=== PATIENT | female | born 1960 | race African-American/Black ===

== ENCOUNTER 2018-01-08 12:24 | Emergency (ER) | payer BC, OTHER ==
[~2018-01-08] VITALS: Ht 157.5 cm; Wt 52.2 kg
[~2018-01-08 12:24] MED LIST: ASPI-612 PO; CIPR250T30 PO; DILT120C71 PO; DILT120C80 PO; HYDR-971 PO; LISI-334 PO; LOPE2TAB27 PO; MECL12.52 PO; METH-37 PO; PROC5TAB34 PO
[2018-01-08] MEDS ORDERED: ONDANSETRON PF 4 MG/2 ML VIAL. IV ONE (13:15)
[2018-01-08] MEDS ORDERED: MECLIZINE HCL 12.5 MG TABLET. PO ONE (13:15)
[2018-01-08] MEDS ORDERED: IV NORMAL SALINE 500ML BAG 500 ML IV ONE (13:15)
--- NOTE | 2018-01-08 13:17 | PHYS DOC ---
Past Medical History Past Medical History: Hypertension, Other Additional Past Medical Histor: chronic back pain Past Surgical History: No Surgical History Alcohol Use: Occasionally Drug Use: None Adult General Chief Complaint Chief Complaint: DIZZY/LIGHT HEADED HPI HPI Patient is a 57 year old female who presents with pinning of dizziness. Patient complaining of intermittent episodes of dizziness for the last 2 or 3 days that usually happen change of position and standing up and last for about 20 minutes. Patient complaining of dizziness and mild headache without other lesion, focal neuro deficit, chest pain, palpitation, fever and chills, change of hearing, tinnitus, nasal congestion. Patient complaining of nausea and 4 episodes of vomiting yesterday and denies abdominal pain, urinary symptoms, diarrhea and constipation and history of dizziness previously. She rated her headache 10/30. Review of Systems Review of Systems Constitutional: Denies fever or chills [] Eyes: Denies change in visual acuity, redness, or eye pain [] HENT: Denies nasal congestion or sore throat [] Respiratory: Denies cough or shortness of breath [] Cardiovascular: No additional information not addressed in HPI [] GI: Denies abdominal pain, nausea, vomiting, bloody stools or diarrhea [] : Denies dysuria or hematuria [] Musculoskeletal: Denies back pain or joint pain [] Integument: Denies rash or skin lesions [] Neurologic: Reports dizziness and headache, denies focal weakness or sensory changes [] Endocrine: Denies polyuria or polydipsia [] All other systems were reviewed and found to be within normal limits, except as documented in this note. Current Medications Current Medications Current Medications Medications (Trade) Dose Ordered Sig/[facility] Start Time Stop Time Status Last Admin Dose Admin Ketorolac Tromethamine (Toradol 30mg Vial) 30 mg 1X ONCE 01/08/18 13:30 01/08/18 13:31 DC 01/08/18 13:39 30 MG Meclizine HCl (Antivert) 25 mg 1X ONCE 01/08/18 13:15 01/08/18 13:16 DC 01/08/18 13:39 25 MG Ondansetron HCl (Zofran) 4 mg 1X ONCE 01/08/18 13:15 01/08/18 13:16 DC 01/08/18 13:39 4 MG Sodium Chloride 500 ml @ 500 mls/hr 1X ONCE 01/08/18 13:15 01/08/18 14:14 DC 01/08/18 13:39 500 MLS/HR Allergies Allergies Allergies Coded Allergies Type Severity Reaction Last Updated Verified No Known Drug Allergies 08/02/15 No Physical Exam Physical Exam Constitutional: Well developed, well nourished, mild distress, non-toxic appearance. [] HENT: Normocephalic, atraumatic, bilateral external ears normal, oropharynx moist, no oral exudates, nose normal. [] Eyes: PERRLA, EOMI, conjunctiva normal, no discharge. [] Neck: Normal range of motion, no tenderness, supple, no stridor. [] Cardiovascular:Heart rate regular rhythm, no murmur [] Lungs & Thorax: Bilateral breath sounds clear to auscultation [] Abdomen: Bowel sounds normal, soft, no tenderness, no masses, no pulsatile masses. [] Skin: Warm, dry, no erythema, no rash. [] Back: No tenderness, no CVA tenderness. [] Extremities: No tenderness, no cyanosis, no clubbing, ROM intact, no edema. [] Neurologic: Alert and oriented X 3, normal motor function, normal sensory function, no focal deficits noted. [] Psychologic: Affect normal, judgement normal, mood normal. [] Current Patient Data Vital Signs Vital Signs Date Time Temp Pulse Resp B/P (MAP) Pulse Ox O2 Delivery O2 Flow Rate FiO2 01/08/18 12:35 98.4 88 16 148/97 (114) 98 Room Air 98.4 Lab Values Laboratory Tests Test 01/08/18 12:39 01/08/18 12:47 Glucose (Fingerstick) 96 mg/dL (70-99) White Blood Count 6.8 x10^3/uL (4.0-11.0) Red Blood Count 5.12 x10^6/uL (3.50-5.40) Hemoglobin 14.4 g/dL (12.0-15.5) Hematocrit 42.6 % (36.0-47.0) Mean Corpuscular Volume 83 fL (79-100) Mean Corpuscular Hemoglobin 28 pg (25-35) Mean Corpuscular Hemoglobin Concent 34 g/dL (31-37) Red Cell Distribution Width 15.0 % (11.5-14.5) H Platelet Count 285 x10^3/uL (140-400) Neutrophils (%) (Auto) 56 % (31-73) Lymphocytes (%) (Auto) 24 % (24-48) Monocytes (%) (Auto) 8 % (0-9) Eosinophils (%) (Auto) 11 % (0-3) H Basophils (%) (Auto) 1 % (0-3) Neutrophils # (Auto) 3.8 x10^3uL (1.8-7.7) Lymphocytes # (Auto) 1.7 x10^3/uL (1.0-4.8) Monocytes # (Auto) 0.5 x10^3/uL (0.0-1.1) Eosinophils # (Auto) 0.7 x10^3/uL (0.0-0.7) Basophils # (Auto) 0.1 x10^3/uL (0.0-0.2) Sodium Level 139 mmol/L (136-145) Potassium Level 3.9 mmol/L (3.5-5.1) Chloride Level 102 mmol/L (98-107) Carbon Dioxide Level 24 mmol/L (21-32) Anion Gap 13 (6-14) Blood Urea Nitrogen 14 mg/dL (7-20) Creatinine 0.8 mg/dL (0.6-1.0) Estimated GFR (Cockcroft-Gault) 89.1 BUN/Creatinine Ratio 18 (6-20) Glucose Level 76 mg/dL (70-99) Calcium Level 9.6 mg/dL (8.5-10.1) Magnesium Level 1.9 mg/dL (1.8-2.4) Total Bilirubin 0.4 mg/dL (0.2-1.0) Aspartate Amino Transferase (AST) 25 U/L (15-37) Alanine Aminotransferase (ALT) 21 U/L (14-59) Alkaline Phosphatase 50 U/L (46-116) Creatine Kinase 92 U/L (26-192) Troponin I Quantitative < 0.017 ng/mL (0.000-0.055) VD-Omf-I-Type Natriuretic Peptide 102 pg/mL (0-124) Total Protein 7.7 g/dL (6.4-8.2) Albumin 3.8 g/dL (3.4-5.0) Albumin/Globulin Ratio 1.0 (1.0-1.7) Laboratory Tests 01/08/18 12:47 Laboratory Tests 01/08/18 12:47 EKG EKG [] Interpretation Time: EKG interpreted by me. EKG at 1490 showed normal sinus rhythm at rate of 87, left babb axis, no acute distress and T-wave abnormalities Radiology/Procedures Radiology/Procedures [facility] [address] [place] [address] IMAGING REPORT Signed PATIENT: LESLEY ALLISON ACCOUNT: [id number] : 1960 LOCATION: ER AGE: 57 SEX: F EXAM STATUS: REG ER ORD. PHYSICIAN: RAINA MORGAN MD REASON: dizziness PROCEDURE: CT HEAD WO CONTRAST PQRS Compliance Statement: One or more of the following individualized dose reduction techniques were utilized for this examination: 1. Automated exposure control 2. Adjustment of the mA and/or kV according to patient size 3. Use of iterative reconstruction technique CT HEAD WITHOUT CONTRAST History: DIZZINESS, LEFT SIDED NUMBNESS X 3 DAYS, Comparison: MR brain without contrast, February 24, 2017. Procedure: Axial images are obtained of the head from the skull base through the vertex without IV contrast. Findings: The ventricles and sulci are normal for the patient's age. No mass-effect, midline shift, hemorrhage, extra-axial fluid collection, or obvious acute infarction is identified. Basilar cisterns are patent. Small focus of hypoattenuation in the subcortical left frontal lobe is stable. Bone windows demonstrate no acute calvarial abnormality. Moderate left sphenoid and mild bilateral ethmoid sinus mucosal thickening. No air-fluid level. Mastoid air cells are well aerated. IMPRESSION: No acute intracranial abnormality. Electronically signed by: Adria Hines MD (01/08/2018 1:39 PM) [id number] DICTATED and SIGNED BY: ADRIA HINES MD DATE: 01/08/18 1333 Course & Med Decision Making Course & Med Decision Making Pertinent Labs and Imaging studies reviewed. (See chart for details) Evaluation of patient in ER showed 57-year-old male patient with complaining of episodes of positional dizziness for the last 3 days. Patient denied nausea and vomiting arrival to ER but later on complaining of 4 episodes of vomiting yesterday. Patient denies history of dizziness previously but according to EMR she other emergency room visits for dizziness. Anicteric comfortable in ER and after treatment with IV fluid and Zofran and meclizine states her problems. Patient asking for 3 days off of work. I was concern for malingering related to her job. Dragon Disclaimer Dragon Disclaimer This electronic medical record was generated, in whole or in part, using a voice recognition dictation system. Departure Departure Impression: Primary Impression: Benign positional vertigo Additional Impressions: Nausea and vomiting Hypertension Disposition: HOME, SELF-CARE (at 1430) Condition: IMPROVED Referrals: MISHA CAMACHO MD (PCP) Patient Instructions: Benign Positional Vertigo, Nausea and Vomiting Additional Instructions: Drink plenty of liquids Follow-up with your primary care physician in 3-5 days Return to ER if not getting better Take only liquid diet today Scripts Ondansetron (ZOFRAN ODT) 4 Mg Tab.rapdis 1 TAB SL Q8HRS, #15 TAB Prov: RAINA MORGAN MD 01/08/18 Meclizine Hcl (MECLIZINE HCL) 25 Mg Tablet 1 TAB PO PRN TID, #30 TAB Prov: RAINA MORGAN MD 01/08/18 Problem Qualifiers RAINA MORGAN MD Jan 08, 2018 13:17
[2018-01-08 13:27] LABS: BASO # 0.1 x10^3/uL (0.0-0.2); BASO % 1 % (0-3); EOS # 0.7 x10^3/uL (0.0-0.7); EOS % 11 % (0-3); HEMATOCRIT 42.6 % (36.0-47.0); HEMOGLOBIN 14.4 g/dL (12.0-15.5); LYMPH # 1.7 x10^3/uL (1.0-4.8); LYMPH % 24 % (24-48); MEAN CORPUSCULAR HEMOGLOBIN 28 pg (25-35); MEAN CORPUSCULAR HGB CONC 34 g/dL (31-37); MEAN CORPUSCULAR VOLUME 83 fL (79-100); MONO # 0.5 x10^3/uL (0.0-1.1); MONO % 8 % (0-9); NEUT # 3.8 x10^3uL (1.8-7.7); NEUT % 56 % (31-73); PLATELET COUNT 285 x10^3/uL (140-400); RED BLOOD COUNT 5.12 x10^6/uL (3.50-5.40); WHITE BLOOD COUNT 6.8 x10^3/uL (4.0-11.0)
[2018-01-08] MEDS ORDERED: KETOROLAC 30 MG/ML VIAL. IV ONE (13:30)
--- NOTE | 2018-01-08 13:42 | RAD ---
PQRS Compliance Statement: One or more of the following individualized dose reduction techniques were utilized for this examination: 1. Automated exposure control 2. Adjustment of the mA and/or kV according to patient size 3. Use of iterative reconstruction technique CT HEAD WITHOUT CONTRAST History: DIZZINESS, LEFT SIDED NUMBNESS X 3 DAYS, Comparison: MR brain without contrast, February 24, 2017. Procedure: Axial images are obtained of the head from the skull base through the vertex without IV contrast. Findings: The ventricles and sulci are normal for the patient's age. No mass-effect, midline shift, hemorrhage, extra-axial fluid collection, or obvious acute infarction is identified. Basilar cisterns are patent. Small focus of hypoattenuation in the subcortical left frontal lobe is stable. Bone windows demonstrate no acute calvarial abnormality. Moderate left sphenoid and mild bilateral ethmoid sinus mucosal thickening. No air-fluid level. Mastoid air cells are well aerated. IMPRESSION: No acute intracranial abnormality. Electronically signed by: Adria Hines MD (01/08/2018 1:39 PM) [id number]
[2018-01-08 13:43] LABS: CALCIUM 9.6 mg/dL (8.5-10.1); CREATININE 0.8 mg/dL (0.6-1.0); GFR 89.1
[2018-01-08 13:49] LABS: ALBUMIN 3.8 g/dL (3.4-5.0); MAGNESIUM 1.9 mg/dL (1.8-2.4); TOTAL BILIRUBIN 0.4 mg/dL (0.2-1.0); TOTAL PROTEIN 7.7 g/dL (6.4-8.2)
[2018-01-08 13:50] LABS: POTASSIUM 3.9 mmol/L (3.5-5.1)
--- NOTE | 2018-01-08 14:09 | RAD ---
EXAM: Chest, single view. HISTORY: Hypertension. Lightheadedness. COMPARISON: None. FINDINGS: A frontal view of the chest is obtained. There is no infiltrate, pleural effusion or pneumothorax. There is a prominent cardiac silhouette, a component of which is likely due to portable technique. IMPRESSION: No acute pulmonary finding. Electronically signed by: Brenda Ram MD (01/08/2018 2:05 PM) [facility]
[2018-01-08 14:39] VITALS: BP 143/81
[2018-01-08] MEDS ORDERED: ONDA4TAB10 SL (14:41)
[2018-01-08] MEDS ORDERED: MECL25TA3 PO (14:41)
--- NOTE | 2018-01-08 15:21 | EKG ---
[facility] [address] [place] [address] Test Date: 2018-01-08 Test Time: 12:39:25 Pat Name: LESLEY ALLISON Department: Room: Gender: F [employer]: : 1960 Requested By: RAINA MORGAN Order Number: [id number] Reading MD: Abe Mccabe MD Measurements Intervals [place] Rate: 87 P: 38 MD: 164 QRS: -29 QRSD: 78 T: 62 QT: 358 QTc: 431 Interpretive Statements SINUS RHYTHM Electronically Signed On 01-09-2018 8:08:51 CDT by Abe Mccabe MD
== END 2018-01-08 15:24 | disposition home or self-care (01) ==
LOC: ER 12:24
DX: H81.10 Benign paroxysmal vertigo, unspecified ear (principal); R11.2 Nausea with vomiting, unspecified; I10 Essential (primary) hypertension; R51 Headache; G89.29 Other chronic pain; M54.9 Dorsalgia, unspecified
CPT/HCPCS: 36415; 70450; 71045; 80053; 82550; 82962; 83735; 83880; 84484; 85025; 93005; 96361; 96374; 96375; 99285; J1885; J2405; J7040; J8597

== ENCOUNTER 2019-05-22 22:45 | Emergency (ER) | payer OTHER ==
[~2019-05-22] VITALS: Ht 157.5 cm; Wt 54.1 kg
[~2019-05-22 22:45] MED LIST changes: -DILT120C80 PO; +DILT120C99 PO; +HYDR-3164 PO; -HYDR-971 PO; +MECL-75 PO; -MECL12.52 PO; +MECL12.573 PO; +ONDA4TAB10 SL
[2019-05-23 00:06] LABS: BASO % 0 % (0-3); EOS % 0 % (0-3); HEMATOCRIT 40.1 % (36.0-47.0); HEMOGLOBIN 13.2 g/dL (12.0-15.5); LYMPH # 1.8 x10^3/uL (1.0-4.8); LYMPH % 16 % (24-48); MEAN CORPUSCULAR HEMOGLOBIN 27 pg (25-35); MEAN CORPUSCULAR HGB CONC 33 g/dL (31-37); MEAN CORPUSCULAR VOLUME 82 fL (79-100); MONO % 9 % (0-9); NEUT # 8.6 x10^3/uL (1.8-7.7); NEUT % 75 % (31-73); PLATELET COUNT 323 x10^3/uL (140-400); RED BLOOD COUNT 4.88 x10^6/uL (3.50-5.40); RED CELL DISTRIBUTION WIDTH 16.5 % (11.5-14.5); WHITE BLOOD COUNT 11.4 x10^3/uL (4.0-11.0)
[2019-05-23 00:10] LABS: BILIRUBIN,URINE NEGATIVE (NEG); CLARITY,URINE CLEAR; COLOR,URINE YELLOW; NITRITE,URINE NEGATIVE (NEG); PH,URINE 8.5; PROTEIN,URINE NEGATIVE (NEG-TRACE); UROBILINOGEN,URINE 0.2 mg/dL (0.2 mg/dL)
[2019-05-23 00:15] LABS: SQUAMOUS EPITHELIAL CELL,UR OCC /LPF
[2019-05-23 00:16] LABS: BACTERIA,URINE 0 /HPF (0-FEW); RBC,URINE RARE /HPF (0-2); WBC,URINE RARE /HPF (0-4)
[2019-05-23 00:19] LABS: CALCIUM 9.6 mg/dL (8.5-10.1); CREATININE 0.7 mg/dL (0.6-1.0); GFR 103.3; POTASSIUM 3.4 mmol/L (3.5-5.1)
--- NOTE | 2019-05-23 00:21 | PHYS DOC ---
Past Medical History Past Medical History: Hypertension, Other Additional Past Medical Histor: chronic back pain Past Surgical History: No Surgical History Alcohol Use: Occasionally Drug Use: None Adult General Chief Complaint Chief Complaint: ABDOMINAL PAIN HPI HPI 59-year-old female with underlying history of hypertension presents to the emergency Department complaints of abdominal pain described as a cramping sensation. She states it started this morning. She describes nausea as well as vomiting. Has had some intermittent diarrhea. Denies any fever. Pain is primarily center aspect of her abdomen no significant radiation. Denies any alcohol use. She denies any headache or visual change, chest pain or shortness of breath on examination. She felt abdominal pain and cramping worsening after taking NyQuil. Nothing makes her pain better, nothing makes her pain worse. Review of Systems Review of Systems Constitutional: Denies fever or chills [] Respiratory: Denies cough or shortness of breath [] Cardiovascular: No additional information not addressed in HPI [] GI: + abdominal pain, nausea, vomiting, diarrhea [] : Denies dysuria or hematuria [] Musculoskeletal: Denies back pain or joint pain [] Integument: Denies rash or skin lesions [] Neurologic: Denies headache, focal weakness or sensory changes [] All other systems were reviewed and found to be within normal limits, except as documented in this note. Current Medications Current Medications Current Medications Medications (Trade) Dose Ordered Sig/[place] Start Time Stop Time Status Last Admin Dose Admin Dicyclomine HCl (Bentyl) 10 mg 1X ONCE 05/23/19 00:30 05/23/19 00:31 DC 05/23/19 00:29 10 MG Info (CONTRAST GIVEN -- Rx MONITORING) 1 each PRN DAILY PRN 05/23/19 01:45 05/25/19 01:44 Iohexol (Omnipaque 300 Mg/ml) 75 ml 1X ONCE 05/23/19 02:00 05/23/19 02:01 DC 05/23/19 02:07 75 ML Morphine Sulfate (Morphine Sulfate) 2 mg 1X ONCE 05/23/19 02:00 05/23/19 02:01 DC 05/23/19 01:33 2 MG Ondansetron HCl (Zofran) 4 mg 1X ONCE 05/23/19 00:30 05/23/19 00:31 DC 05/23/19 00:29 4 MG Sodium Chloride 1,000 ml @ 1,000 mls/hr 1X ONCE 05/23/19 00:30 05/23/19 01:29 DC 05/23/19 00:29 1,000 MLS/HR Allergies Allergies Allergies Coded Allergies Type Severity Reaction Last Updated Verified No Known Drug Allergies 08/02/15 No Physical Exam Physical Exam Constitutional: Well developed, well nourished, no acute distress, non-toxic appearance. [] HENT: Normocephalic, atraumatic, bilateral external ears normal, oropharynx moist, no oral exudates, nose normal. [] Eyes: PERRLA, EOMI, conjunctiva normal, no discharge. [] Cardiovascular:Heart rate regular rhythm, no murmur [] Lungs & Thorax: Bilateral breath sounds clear to auscultation [] Abdomen: Bowel sounds normal, soft, mild TTP epigastric region, no masses, no pulsatile masses. [] Skin: Warm, dry, no erythema, no rash. [] Back: No tenderness, no CVA tenderness. [] Extremities: No tenderness, no edema. [] Neurologic: Alert and oriented X 3, no focal deficits noted. [] Psychologic: Affect normal, judgement normal, mood normal. [] Current Patient Data Vital Signs Vital Signs Date Time Temp Pulse Resp B/P (MAP) Pulse Ox O2 Delivery O2 Flow Rate FiO2 05/23/19 01:33 95 05/22/19 23:00 98.4 95 12 181/106 (131) Room Air 98.4 Lab Values Laboratory Tests Test 05/22/19 22:50 05/22/19 23:40 Urine Collection Type Unknown Urine Color Yellow Urine Clarity Clear Urine pH 8.5 Urine Specific [place] 1.015 Urine Protein Negative mg/dL (NEG-TRACE) Urine Glucose (UA) Negative mg/dL (NEG) Urine Ketones (Stick) Negative mg/dL (NEG) Urine Blood Negative (NEG) Urine Nitrite Negative (NEG) Urine Bilirubin Negative (NEG) Urine Urobilinogen Dipstick 0.2 mg/dL (0.2 mg/dL) Urine Leukocyte Esterase Negative (NEG) Urine RBC Rare /HPF (0-2) Urine WBC Rare /HPF (0-4) Urine Squamous Epithelial Cells Occ /LPF Urine Bacteria 0 /HPF (0-FEW) Urine Mucus Slight /LPF White Blood Count 11.4 x10^3/uL (4.0-11.0) H Red Blood Count 4.88 x10^6/uL (3.50-5.40) Hemoglobin 13.2 g/dL (12.0-15.5) Hematocrit 40.1 % (36.0-47.0) Mean Corpuscular Volume 82 fL (79-100) Mean Corpuscular Hemoglobin 27 pg (25-35) Mean Corpuscular Hemoglobin Concent 33 g/dL (31-37) Red Cell Distribution Width 16.5 % (11.5-14.5) H Platelet Count 323 x10^3/uL (140-400) Neutrophils (%) (Auto) 75 % (31-73) H Lymphocytes (%) (Auto) 16 % (24-48) L Monocytes (%) (Auto) 9 % (0-9) Eosinophils (%) (Auto) 0 % (0-3) Basophils (%) (Auto) 0 % (0-3) Neutrophils # (Auto) 8.6 x10^3/uL (1.8-7.7) H Lymphocytes # (Auto) 1.8 x10^3/uL (1.0-4.8) Monocytes # (Auto) 1.0 x10^3/uL (0.0-1.1) Eosinophils # (Auto) 0.0 x10^3/uL (0.0-0.7) Basophils # (Auto) 0.0 x10^3/uL (0.0-0.2) Sodium Level 138 mmol/L (136-145) Potassium Level 3.4 mmol/L (3.5-5.1) L Chloride Level 97 mmol/L (98-107) L Carbon Dioxide Level 30 mmol/L (21-32) Anion Gap 11 (6-14) Blood Urea Nitrogen 11 mg/dL (7-20) Creatinine 0.7 mg/dL (0.6-1.0) Estimated GFR (Cockcroft-Gault) 103.3 BUN/Creatinine Ratio 16 (6-20) Glucose Level 112 mg/dL (70-99) H Lactic Acid Level 1.0 mmol/L (0.4-2.0) Calcium Level 9.6 mg/dL (8.5-10.1) Total Bilirubin 0.3 mg/dL (0.2-1.0) Aspartate Amino Transferase (AST) 64 U/L (15-37) H Alanine Aminotransferase (ALT) 69 U/L (14-59) H Alkaline Phosphatase 70 U/L (46-116) Troponin I Quantitative < 0.017 ng/mL (0.000-0.055) Total Protein 7.9 g/dL (6.4-8.2) Albumin 4.5 g/dL (3.4-5.0) Albumin/Globulin Ratio 1.3 (1.0-1.7) Lipase 72 U/L (73-393) L Laboratory Tests 05/22/19 23:40 Laboratory Tests 05/22/19 23:40 EKG EKG [] Radiology/Procedures Radiology/Procedures [place] [id number] IMAGING REPORT Signed PATIENT: LESLEY ALLISON ACCOUNT: [id number] : 1960 LOCATION: ER AGE: 59 SEX: F EXAM STATUS: REG ER ORD. PHYSICIAN: MEGHAN GRAHAM MD REASON: abdominal pain PROCEDURE: KUB EXAM: Supine AP view of the abdomen DATE: 05/23/2019 12:18 AM INDICATION: abdominal pain COMPARISON: No Prior FINDINGS: No abnormal small or large bowel dilatation. Moderate colonic stool content. No abnormal soft tissue mass effect. No suspicious calcifications are seen. Evaluation for free intraperitoneal gas is limited on this supine exam. IMPRESSION: 1. No evidence for bowel obstruction. Electronically signed by: Korey Irizarry MD (05/23/2019 12:55 AM) [facility] DICTATED and SIGNED BY: KOREY IRIZARRY MD DATE: 05/23/19 0055 [] [address] [address] IMAGING REPORT Signed PATIENT: LESLEY ALLISON ACCOUNT: [id number] : 1960 LOCATION: ER AGE: 59 SEX: F EXAM STATUS: REG ER ORD. PHYSICIAN: MEGHAN GRAHAM MD REASON: abdominal pain, normal KUB no improvement with pain med PROCEDURE: CT ABD PELV W/ IV CONTRST ONLY EXAM: CT Abdomen and Pelvis with IV contrast CLINICAL HISTORY: Abdominal pain. COMPARISON: KUB 05/23/2019 TECHNIQUE: Helical CT of the abdomen and pelvis was performed following the administration of IV contrast. Axial, coronal and sagittal reformatted images were generated. ---PQRS compliance statement - One or more of the following individualized dose reduction techniques were utilized for this study: 1. Automated exposure control 2. Adjustment of the mA and/or kV according to patient size 3. Use of iterative reconstruction technique--- FINDINGS: Lower chest: Dependent opacities bilaterally likely atelectasis. Abdomen and pelvis: Liver and biliary system: Focal low-attenuation along the falciform ligament likely focal fatty infiltration. High density material dependently within the gallbladder likely sludge. No gallbladder dilatation. Spleen: Unremarkable Pancreas: Unremarkable Adrenal glands: Unremarkable Kidneys: Symmetric nephrograms. No focal renal lesion. No hydronephrosis. No hydroureter. Lymph nodes/retroperitoneum: No abdominal or pelvic lymphadenopathy. Vessels: Aortic calcifications are seen. Aorta is normal in caliber. Bowel/Peritoneal cavity: Mild colonic stool content is seen. Appendix is normal. No small or large bowel dilatation. No evidence for bowel obstruction. Colonic diverticulosis without evidence for acute diverticulitis. No abdominal pelvic ascites. Multi fibroid uterus. Abdominal wall: Small fat-containing periumbilical hernia. Bladder: Marked distention of the bladder. Bones: Degenerative changes of spine are seen. No aggressive osseous lesion. IMPRESSION: 1. Marked distention of the bladder. This can be correlated for voluntary or involuntary causes of urinary retention. 2. No bowel obstruction. 3. Colonic diverticulosis without evidence for acute diverticulitis. 4. Gallbladder sludge. No evidence for acute diverticulitis. 5. Focal low-attenuation along the falciform ligament likely focal fatty infiltration. 6. Electronically signed by: Korey Irizarry MD (05/23/2019 2:19 AM) [facility] DICTATED and SIGNED BY: KOREY IRIZARRY MD DATE: 05/23/19 0219 Course & Med Decision Making Course & Med Decision Making Pertinent Labs and Imaging studies reviewed. (See chart for details) []59-year-old female with underlying history of hypertension presents to the emergency Department complaints of abdominal pain described as a cramping sensation. She states it started this morning. She describes nausea as well as vomiting. Has had some intermittent diarrhea. Denies any fever. Pain is primarily center aspect of her abdomen no significant radiation. Denies any alcohol use. She denies any headache or visual change, chest pain or shortness of breath on examination. She felt abdominal pain and cramping worsening after taking NyQuil. Nothing makes her pain better, nothing makes her pain worse. Labs/Imaging reviewed No evidence of acute intra-abdominal process identified to account for pain lactic acid 1.0 Patient received 2mg morphine, bentyl/zofran with some improvement, not completely gone Discussed negative labs and negative workup Plan bentyl and zofran upon discharge Recommend follow up with PCP Return precautions provided upon discharge, discussed with family Jeffon Disclaimer [place]mar Disclaimer This electronic medical record was generated, in whole or in part, using a voice recognition dictation system. Departure Departure Impression: Primary Impression: Abdominal pain Disposition: HOME, SELF-CARE Condition: IMPROVED Referrals: DAX LOPEZ [employer] (PCP) Patient Instructions: Abdominal Pain (Nonspecific) Additional Instructions: Recommend follow up with PCP 3 - 5 days Return to the ER with worsening symptoms, intractable pain, fever, altered mental status Tylenol/Motrin as needed for pain CT negative for acute process in the abdomen or pelvis Bentyl and zofran provided for pain and nausea Scripts Dicyclomine Hcl (DICYCLOMINE HCL) 10 Mg Capsule 1 CAP PO TID for 7 Days, #21 CAP 11 Refills Prov: MEGHAN GRAHAM MD 05/23/19 Ondansetron Hcl (ZOFRAN) 4 Mg Tablet 1 TAB PO PRN Q6-8HRS for nausea, #12 TAB Prov: MEGHAN GRAHAM MD 05/23/19 Problem Qualifiers Primary Impression: Abdominal pain Abdominal location: generalized Qualified Codes: R10.84 - Generalized abdominal pain MEGHAN GRAHAM MD May 23, 2019 00:21
[2019-05-23] MEDS ORDERED: IV NORMAL SALINE 1000ML BAG 1,000 ML IV ONE (00:30)
[2019-05-23] MEDS ORDERED: DICYCLOMINE 20 MG/2 ML AMPUL. IM ONE (00:30)
[2019-05-23] MEDS ORDERED: ONDANSETRON PF 4 MG/2 ML VIAL. IVP ONE (00:30)
[2019-05-23 00:31] LABS: ALBUMIN 4.5 g/dL (3.4-5.0); ALBUMIN/GLOBULIN RATIO 1.3 (1.0-1.7); TOTAL BILIRUBIN 0.3 mg/dL (0.2-1.0); TOTAL PROTEIN 7.9 g/dL (6.4-8.2)
--- NOTE | 2019-05-23 00:58 | RAD ---
EXAM: Supine AP view of the abdomen DATE: 05/23/2019 12:18 AM INDICATION: abdominal pain COMPARISON: No Prior FINDINGS: No abnormal small or large bowel dilatation. Moderate colonic stool content. No abnormal soft tissue mass effect. No suspicious calcifications are seen. Evaluation for free intraperitoneal gas is limited on this supine exam. IMPRESSION: 1. No evidence for bowel obstruction. Electronically signed by: Korey Adams MD (05/23/2019 12:55 AM) [facility]
[2019-05-23] MEDS ORDERED: CONTRAST GIVEN. MC PRN (01:45)
[2019-05-23] MEDS ORDERED: IOHEXOL 300 MG/ML 100ML VIAL. IV ONE (02:00)
[2019-05-23] MEDS ORDERED: MORPHINE SULFATE 2 MG/ML VIAL. IV ONE (02:00)
[2019-05-23 02:03] VITALS: BP 175/93
--- NOTE | 2019-05-23 02:22 | RAD ---
EXAM: CT Abdomen and Pelvis with IV contrast CLINICAL HISTORY: Abdominal pain. COMPARISON: KUB 05/23/2019 TECHNIQUE: Helical CT of the abdomen and pelvis was performed following the administration of IV contrast. Axial, coronal and sagittal reformatted images were generated. ---PQRS compliance statement - One or more of the following individualized dose reduction techniques were utilized for this study: 1. Automated exposure control 2. Adjustment of the mA and/or kV according to patient size 3. Use of iterative reconstruction technique--- FINDINGS: Lower chest: Dependent opacities bilaterally likely atelectasis. Abdomen and pelvis: Liver and biliary system: Focal low-attenuation along the falciform ligament likely focal fatty infiltration. High density material dependently within the gallbladder likely sludge. No gallbladder dilatation. Spleen: Unremarkable Pancreas: Unremarkable Adrenal glands: Unremarkable Kidneys: Symmetric nephrograms. No focal renal lesion. No hydronephrosis. No hydroureter. Lymph nodes/retroperitoneum: No abdominal or pelvic lymphadenopathy. Vessels: Aortic calcifications are seen. Aorta is normal in caliber. Bowel/Peritoneal cavity: Mild colonic stool content is seen. Appendix is normal. No small or large bowel dilatation. No evidence for bowel obstruction. Colonic diverticulosis without evidence for acute diverticulitis. No abdominal pelvic ascites. Multi fibroid uterus. Abdominal wall: Small fat-containing periumbilical hernia. Bladder: Marked distention of the bladder. Bones: Degenerative changes of spine are seen. No aggressive osseous lesion. IMPRESSION: 1. Marked distention of the bladder. This can be correlated for voluntary or involuntary causes of urinary retention. 2. No bowel obstruction. 3. Colonic diverticulosis without evidence for acute diverticulitis. 4. Gallbladder sludge. No evidence for acute diverticulitis. 5. Focal low-attenuation along the falciform ligament likely focal fatty infiltration. 6. Electronically signed by: Korey Adams MD (05/23/2019 2:19 AM) [facility]
[2019-05-23] MEDS ORDERED: ONDA4TAB7 PO (02:39)
[2019-05-23] MEDS ORDERED: DICY10CA3 PO (02:39)
--- NOTE | 2019-05-23 07:34 | EKG ---
[facility] [address] [place] [address] Test Date: 2019-05-22 Test Time: 23:09:08 Pat Name: LESLEY ALLISON Department: Room: Gender: F [employer] Sales Advisor: : [id number] Requested By: MEGHAN GRAHAM Order Number: [id number] Reading MD: Measurements Intervals [place] Rate: 91 P: -15 [place]: 154 QRS: -23 QRSD: 82 T: 68 QT: 342 QTc: 422 Interpretive Statements SINUS RHYTHM LEFTWARD AXIS CONSIDER LEFT VENTRICULAR HYPERTROPHY T ABNORMALITY IN ANTERIOR LEADS ABNORMAL ECG RI6.01 No previous ECG available for comparison
== END 2019-05-23 02:50 | disposition home or self-care (01) ==
LOC: ER 22:45
DX: R10.13 Epigastric pain (principal); R11.2 Nausea with vomiting, unspecified; R19.7 Diarrhea, unspecified; I10 Essential (primary) hypertension; G89.29 Other chronic pain
CPT/HCPCS: 36415; 74018; 74177; 80053; 81001; 83605; 83690; 84484; 85025; 93005; 96361; 96372; 96374; 96375; 99285; J0500; J2270; J2405; J7030; Q9967

== ENCOUNTER 2020-03-08 11:27 | Emergency (ER) | payer OTHER ==
[~2020-03-08] VITALS: Ht 157.5 cm; Wt 54.0 kg
[~2020-03-08 11:27] MED LIST changes: -ASPI-612 PO; +ASPI-886 PO; +DICY10CA3 PO; +ONDA4TAB7 PO
[2020-03-08 12:01] VITALS: BP 146/90
[2020-03-08] MEDS ORDERED: ORPH100T PO (12:36)
[2020-03-08] MEDS ORDERED: NAPR-695 PO (12:36)
--- NOTE | 2020-03-08 12:36 | PHYS DOC ---
Past Medical History Past Medical History: Hypertension, Other Additional Past Medical Histor: chronic back pain Past Surgical History: No Surgical History, Tonsillectomy Smoking Status: Never Smoker Alcohol Use: Occasionally Drug Use: None General Adult EDM: Chief Complaint: NECK PAIN HPI: HPI: Patient is a 59 year old female who presents with neck pain. Woke up at 10am today with R neck pain. Describes as a sharp shooting pain that starts at the base of the skull and goes down the neck, aggravated with movement. Does not radiate into arm. Reports pain of 01/30, has only used topical analgesic so far this morning. Works as a house keeper. Review of Systems: Review of Systems: Constitutional: Denies fever or chills Eyes: Denies redness or eye pain HENT: Denies nasal congestion or sore throat Respiratory: Denies cough or shortness of breath Cardiovascular: Denies chest pain or palpitations GI: Denies abdominal pain, nausea, or vomiting : Denies dysuria or hematuria Musculoskeletal: Denies back pain or joint pain, Reports neck pain Integument: Denies rash or skin lesions Neurologic: Denies headache, focal weakness or sensory changes Complete systems were reviewed and found to be within normal limits, except as documented in this note. Current Medications: Diltiazem 120mg 1 capsule daily Allergies: Allergies: Allergies Coded Allergies Type Severity Reaction Last Updated Verified No Known Drug Allergies 08/02/15 No Physical Exam: PE: Constitutional: Well developed, well nourished, no acute distress, non-toxic appearance HENT: Normocephalic, atraumatic Eyes: PERRL, EOMI, conjunctiva normal, no discharge Neck: Limited range of motion due to pain, tenderness to palpation over the latisimus dorsi, no midline tenderness Lungs & Thorax: No respiratory distress, equal chest rise and fall Abdomen: Soft, no tenderness Skin: Warm, dry, no erythema, no rash Back: No tenderness, no CVA tenderness Extremities: No tenderness, ROM intact, no edema, strength equal bilaterally Neurologic: Alert and oriented X 3, normal motor function, normal sensory function, no focal deficits noted Psychologic: Affect normal, judgment normal Current Patient Data: Vital Signs: Vital Signs Date Time Temp Pulse Resp B/P (MAP) Pulse Ox O2 Delivery O2 Flow Rate FiO2 03/08/20 12:01 98.0 95 16 146/90 (108) 99 Room Air 98.0 Radiology/Procedures: Impression: Patient has no concerning signs to warrant imaging at this time. Given dose of a muscle relaxer and anti-inflammatory. Prescribed muscle relaxer, anti- inflammatory, and steroid. Patient stable for discharge with outpatient follow-up with PCP. Discussed findings and plan with patient, who acknowledges understanding and agreement. Course & Med Decision Making: Course & Med Decision Making Pertinent Labs and Imaging studies reviewed. (See chart for details) [] Dragon Disclaimer: Dragon Disclaimer: This electronic medical record was generated, in whole or in part, using a voice recognition dictation system. Departure Departure Impression: Primary Impression: Neck pain Disposition: 01 DC HOME SELF CARE/HOMELESS Condition: STABLE Referrals: JORJE FIORE RESIDENTIAL LIFE DIRECTOR-C (PCP) FEROZ LEWIS MD Patient Instructions: Cervical Sprain, [id number] Additional Instructions: ICE area 20 min on then leave off next 20 min. Repeat several times daily for next few days. Scripts Orphenadrine Citrate (ORPHENADRINE CITRATE) 100 Mg Tablet.er 100 MG PO BID PRN for MUSCLE PAIN, #14 TAB Prov: SAM ULLOA DO 03/08/20 Naproxen (NAPROXEN) 375 Mg Tablet 375 MG PO TID PRN for PAIN, #20 TAB Prov: SAM ULLOA DO 03/08/20 SAM ULLOA DO Mar 08, 2020 12:36
[2020-03-08] MEDS ORDERED: KETOROLAC 30 MG/ML VIAL. IM ONE (12:45)
[2020-03-08] MEDS ORDERED: ORPHENADRINE CITRATE 60 MG/2 ML VIAL. IM ONE (12:45)
[2020-03-08] MEDS ORDERED: DEXAMETHASONE 4 MG TABLET PO ONE (12:45)
== END 2020-03-08 13:22 | disposition home or self-care (01) ==
LOC: ER 11:27
DX: M54.2 Cervicalgia (principal); I10 Essential (primary) hypertension; G89.29 Other chronic pain
CPT/HCPCS: 96372; 99284; J1885; J2360

== ENCOUNTER 2021-01-10 11:24 | Emergency (ER) | payer OTHER ==
[~2021-01-10] VITALS: Ht 157.5 cm; Wt 51.5 kg
[~2021-01-10 11:24] MED LIST changes: -LISI-334 PO; +LISI20TA18 PO; -MECL12.573 PO; +MECL12.582 PO; +NAPR-695 PO; +ORPH100T PO
[2021-01-10] MEDS ORDERED: CYCL10TA2 PO (16:17)
[2021-01-10] MEDS ORDERED: NAPR-695 PO (16:17)
[2021-01-10] MEDS ORDERED: METH4TAB2 PO (16:17)
--- NOTE | 2021-01-10 16:18 | PHYS DOC ---
Past Medical History Past Medical History: Hypertension, Other Additional Past Medical Histor: chronic back pain Past Surgical History: No Surgical History, Tonsillectomy Smoking Status: Never Smoker Alcohol Use: Occasionally Drug Use: None General Adult EDM: Chief Complaint: NECK PAIN HPI: HPI: Patient is a 60 year old female with history of hypertension who presents the ED today complaining of 10 out of 10 left-sided neck pain, symptoms began this morning when she woke up. Patient describes the pain as sharp and intermittent worse when rotating her neck to the left or touching her left lateral neck, states heating pad helps with the pain. Denies any trauma. Denies any headache, nausea, fevers, dizziness. Denies any chest pain or shortness of breath. Denies any pain radiating to bilateral upper extremities. Denies any numbness or tingling to bilateral upper extremities. She states she has had similar pain before and was treated in this emergency room. 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 Review of Systems: Review of Systems: Constitutional: Denies fever or chills. [] Eyes: Denies change in visual acuity. [] HENT: Denies nasal congestion or sore throat. [] Respiratory: Denies cough or shortness of breath. [] Cardiovascular: Denies chest pain or edema. [] GI: Denies abdominal pain, nausea, vomiting, bloody stools or diarrhea. [] : Denies dysuria. [] Musculoskeletal: Reports left lateral neck pain. Denies back pain Integument: Denies rash. [] Neurologic: Denies headache, focal weakness or sensory changes. [] Psychiatric: Denies depression or anxiety. [] Heart Score: C/O Chest Pain: N/A Risk Factors: Risk Factors: DM, Current or recent (<one month) smoker, HTN, HLP, family history of CAD, obesity. Risk Scores: Score 0 - 3: 2.5% MACE over next 6 weeks - Discharge Home Score 4 - 6: 20.3% MACE over next 6 weeks - Admit for Clinical Observation Score 7 - 10: 72.7% MACE over next 6 weeks - Early Invasive Strategies Allergies: Allergies: Allergies Coded Allergies Type Severity Reaction Last Updated Verified No Known Drug Allergies 08/02/15 No Physical Exam: PE: Constitutional: Well developed, well nourished, no acute distress, non-toxic appearance. [] HENT: Normocephalic, atraumatic, bilateral external ears normal, oropharynx moist, no oral exudates, nose normal. [] Eyes: PERRLA, EOMI, conjunctiva normal, no discharge. [] Neck: Normal range of motion, diffuse paraspinal muscle tenderness to the left lateral cervical spine, no midline cervical spine tenderness, supple, no stridor. [] Cardiovascular:Heart rate regular rhythm, no murmur [] Lungs & Thorax: Bilateral breath sounds clear to auscultation [] Abdomen: Bowel sounds normal, soft, no tenderness, no masses, no pulsatile masses. [] Skin: Warm, dry, no erythema, no rash. [] Back: No tenderness, no CVA tenderness. [] Extremities: No tenderness, no cyanosis, no clubbing, ROM intact, no edema. [] Neurologic: Alert and oriented X 3, normal motor function, normal sensory function, no focal deficits noted. [] Psychologic: Affect normal, judgement normal, mood normal. [] Current Patient Data: Vital Signs: Vital Signs Date Time Temp Pulse Resp B/P (MAP) Pulse Ox O2 Delivery O2 Flow Rate FiO2 01/10/21 12:56 97.8 82 12 167/100 (122) 100 Room Air 97.8 EKG: EKG: [] Radiology/Procedures: Radiology/Procedures: [] Course & Med Decision Making: Course & Med Decision Making Pertinent Labs and Imaging studies reviewed. (See chart for details) This is a 60-year-old female patient presented to the ED today with neck pain to the left lateral side. Pain is muscleskeletal. There is no meningeal signs. No signs of cardiac origin for this pain. Patient has had similar pain before and states it is consistent with the last time she had neck pain. Was discharged with Medrol dose pack Flexeril and naproxen. Follow-up with PCP. Other alternative measures recommended to manage her pain including heating pad. Dragon Disclaimer: Lisa Disclaimer: This electronic medical record was generated, in whole or in part, using a voice recognition dictation system. Departure Departure Impression: Primary Impression: Torticollis, acute Disposition: 01 HOME / SELF CARE / HOMELESS Condition: STABLE Referrals: JORJE FIORE-Aung (PCP) follow up in 1 week Patient Instructions: Torticollis, Acute Additional Instructions: You were evaluated in the emergency room for neck pain. We highly recommend you use a heating pad on the neck. We will send prescription medicine to your pharmacy. Take it as ordered. Follow-up with your doctor in 1 week. Scripts Naproxen (NAPROXEN) 375 Mg Tablet 1 TAB PO BID for pain, #14 TAB 0 Refills with food Prov: ROSEMARIE REYES APRN 01/10/21 Methylprednisolone (MEDROL) 4 Mg Tab.ds.pk 1 PKG PO UD, #1 PKG Prov: ROSEMARIE REYES APRN 01/10/21 Cyclobenzaprine Hcl (CYCLOBENZAPRINE HCL) 10 Mg Tablet 1 TAB PO TID, #30 TAB Prov: ROSEMARIE REYES APRN 01/10/21 ROSEMARIE REYES APRN Jan 10, 2021 16:18
== END 2021-01-10 16:27 | disposition home or self-care (01) ==
LOC: ER 11:24
DX: M43.6 Torticollis (principal); G89.29 Other chronic pain; I10 Essential (primary) hypertension
CPT/HCPCS: 99283